=== PATIENT | female | born 1980 | race Caucasian/White ===

== ENCOUNTER 2022-02-03 01:42 | Emergency (ER) | payer SELFPAY ==
[2022-02-03] MEDS ORDERED: Aspirin 81 MG Tab.Chew PO ONE (01:50)
[2022-02-03] MEDS ORDERED: Morphine 4 MG/ML VIAL IVPUSH ONE (01:57)
[2022-02-03] MEDS ORDERED: Ondansetron 4 MG/2 ML SDV IVPUSH ONE (02:01)
[2022-02-03] MEDS ORDERED: Ondansetron 4 MG/2 ML SDV ONE (02:01)
[2022-02-03 02:32] LABS: CARBON DIOXIDE,CO2 30.2 mmol/L (21.0-32.0); POTASSIUM,K 4.6 mmol/L (3.5-5.1)
[2022-02-03] MEDS ORDERED: Ondansetron 4 MG/2 ML SDV IVPUSH STA (02:48)
[2022-02-03] MEDS ORDERED: Iopamidol 755 MG/ML 500 ML Multipack Bottle IVPUSH STA (04:11)
[2022-02-03] MEDS ORDERED: Alum Hydro/Mag Hydro/Simeth XS 15 ML, Lidocaine 2% 5 ML PO ONE ×2 (04:34)
[2022-02-03] MEDS ORDERED: Lactated Ringers 1,000 ML IV STA (04:48)
[2022-02-03] MEDS ORDERED: Famotidine 20 MG Tab PO ONE (04:48)
== END 2022-02-03 06:18 | disposition home or self-care (01) ==
LOC: MW.ED 01:42
DX: R07.9 Chest pain, unspecified (principal); Z87.891 Personal history of nicotine dependence; Z20.822 Contact with and (suspected) exposure to COVID-19
CPT/HCPCS: 36415; 71045; 71275; 80053; 83735; 84484; 85025; 87635; 93005; 96374; 96375; 96376; 99285; A9270; J2270; J2405; J7120; Q9967; U0002